=== PATIENT | male | born 1990 | race Two or more races ===

== ENCOUNTER 2019-02-18 00:34 | Emergency (ER) | payer SELFPAY ==
[~2019-02-18] VITALS: Ht 167.6 cm; Wt 87.0 kg
[2019-02-18] MEDS ORDERED: SODIUM CHLORIDE 0.9% 1,000 ML IV ONE (01:18)
[2019-02-18] MEDS ORDERED: KETOROLAC 30MG/ML VIAL IV STA (01:18)
[2019-02-18 01:48] LABS: CHLORIDE 108 mEq/L (98-107)
[2019-02-18 01:52] LABS: ETHANOL BLOOD 132 mg/dL
[2019-02-18 02:01] LABS: BASOPHILS % 0.8 % (0.0-2.0); EOSINOPHILS % 2.1 % (0.0-5.0); HEMATOCRIT. 45.8 % (42.0-52.0); HEMOGLOBIN. 15.5 g/dL (14.0-18.0); LYMPHOCYTES % 36.9 % (20.0-50.0); MEAN CORPUSCULAR HEMOGLOBIN 30.2 pg (28.0-32.0); MEAN CORPUSCULAR VOLUME 89.3 fL (80.0-94.0); MEAN PLATELET VOLUME 8.6 fl (7.4-10.4); MONOCYTES % 6.9 % (2.0-8.0); NEUTROPHILS % 53.3 % (40.0-76.0); PLATELET 265 x1000/uL (130-400); RED BLOOD CELL COUNT 5.13 mill/uL (4.7-6.1); RED CELL DISTRIBUTION WIDTH 12.6 % (11.6-14.6)
[2019-02-18 02:09] LABS: PARTIAL THROMBOPLASTIN TIME 26.8 sec (23.4-31.0)
[2019-02-18 03:00] VITALS: BP 113/57
[2019-02-18] MEDS ORDERED: IOHEXOL-300 100 ML BOTTLE ONE (03:12)
[2019-02-18] MEDS ORDERED: ACETAMINOPHEN 500MG TABLET PO ONE (03:30)
== END 2019-02-18 03:55 | disposition home or self-care (01) ==
LOC: ER 00:34
DX: R10.9 Unspecified abdominal pain (principal); M54.2 Cervicalgia; F10.129 Alcohol abuse with intoxication, unspecified; V89.2XXA Person injured in unspecified motor-vehicle accident, traffic, initial encounter; Y93.89 Activity, other specified; Y92.89 Other specified places as the place of occurrence of the external cause; Y99.8 Other external cause status; Y90.6 Blood alcohol level of 120-199 mg/100 ml
CPT/HCPCS: 36415; 70450; 71045; 71260; 72125; 72170; 74177; 80053; 80320; 83690; 85025; 85610; 85730; 86850; 86900; 86901; 93005; 96374; 99284; J1885; J7030; Q9967; G0480